=== PATIENT | male | born 1935 | race Caucasian/White ===

== ENCOUNTER → 2018-03-18 | Outpatient (CLI) | payer OTHER, BC ==
[~2018-03-18] MED LIST: AZITHROMYCIN 2250 MG PO; CEFDINIR300 MG PO; CENTRUM SILVER1 EAC2 PO; COUMADIN 5 MG TA5 M1 PO; FLOMAX0.4 MG PO; INDOMETHACIN 2525 MG PO; KETOCONAZOLE15 GM TOP; LOPRESSOR25 PO; LOSARTAN-HCTZ1 EAC3 PO; NORVASC5 MG PO; OMEGA-31000 M1 PO; PREDNISONE 10 M10 MG PO; SIMVASTATIN40 MG PO; VENTOLIN HFA 1818 GM INH
== END ==
LOC: RAD 09:47
DX: R05 Cough (principal); Z87.01 Personal history of pneumonia (recurrent)

== ENCOUNTER → 2018-05-15 | Outpatient (CLI) | payer OTHER, BC | LOC: RAD 09:28 | DX: J18.1 Lobar pneumonia, unspecified organism (principal) ==